=== PATIENT | female | born 1985 | race Caucasian/White ===

== ENCOUNTER 2024-10-19 09:15 | Day surgery (SDC) | payer OTHER ==
[~2024-10-19 09:15] MED LIST: IRON DEXTRAN COMPLEX 1,000 MG in SODIUM CHLORIDE 250 ML IVPB ONE
[2024-10-19] MEDS: IRON DEXTRAN COMPLEX 1,000 MG in SODIUM CHLORIDE 250 ML IVPB ONE (10:21)
[2024-10-19 12:31] VITALS: RESP 16; TEMP 98
[2024-10-19 12:34] VITALS: BP 112/72; PULSE 55
== END 2024-10-19 12:30 | disposition home or self-care (01) ==
LOC: JONCNONCHE 09:15
PROVIDERS: ATTEND Internal Medicine Hematology & Oncology
PROC: 3E033GC Introduction of Other Therapeutic Substance into Peripheral Vein, Percutaneous Approach (ICD-10-PCS; principal; 2024-10-19)
DX: D50.9 Iron deficiency anemia, unspecified (principal)
CPT/HCPCS: 84703; J1750